=== PATIENT | female | born 1945 | race Two or more races ===

== ENCOUNTER 2022-02-21 10:58 | Outpatient (CLI) | payer MEDICARE, OTHER ==
[2022-02-21 12:57] LABS: BASOPHILS % (AUTO) 0.8 % (0.0-2.0); HEMATOCRIT 46 % (33-45); HEMOGLOBIN 15.1 g/dL (11.5-14.8); LYMPHOCYTES # (AUTO) 2.6 K/uL (0.8-4.8); LYMPHOCYTES % (AUTO) 44.8 % (20.0-44.0); MEAN CORPUSCULAR HGB CONC 33 g/dl (31.0-36.0); MEAN CORPUSCULAR VOLUME 91 fL (82-100); MONOCYTES # (AUTO) 0.4 K/uL (0.1-1.30); MONOCYTES % (AUTO) 6.3 % (2.0-12.0); NEUTROPHILS # (AUTO) 2.8 K/uL (1.8-8.9); NEUTROPHILS % (AUTO) 47.1 % (43.0-81.0); PLATELET COUNT (AUTO) 232 K/uL (150-450); RED BLOOD CELL COUNT(AUTO) 5.03 MIL/uL (4.0-5.2); WHITE BLOOD COUNT (AUTO) 5.9 K/uL (4.3-11.0)
[2022-02-21 12:59] LABS: BILIRUBIN,URINE NEGATIVE (NEGATIVE); COLOR,URINE ORANGE (YELLOW); LEUKOCYTE ESTERASE ,URINE NEGATIVE (NEGATIVE); NITRITE, URINE NEGATIVE (NEGATIVE); PH,URINE 5.5 (5.0-8.0); PROTEIN,URINE NEGATIVE (NEGATIVE); UGLUCOSE NEGATIVE (NEGATIVE); UROBILINOGEN,URINE 0.2 EU/dL (0.2)
[2022-02-21 13:07] LABS: IRON, SERUM 113 ug/dl (50-175); TOTAL IRON BINDING CAPACITY 286 ug/dl (250-450)
[2022-02-21 13:15] LABS: BACTERIA,URINE Few /HPF (None Seen); RBC,URINE 0-2 /HPF (0-2); SQUAMOUS EPITHELIAL CELL,UR Few /HPF (None Seen); WBC,URINE 0-2 /HPF (0-3)
[2022-02-21 13:32] LABS: URINE TOTAL PROTEIN < 6.0 mg/dL (0-11.9)
[2022-02-21 13:39] LABS: ALANINE AMINOTRANSFERASE 28 U/L (12-78); ALBUMIN 3.7 g/dL (3.4-5.0); ALKALINE PHOSPHATASE 70 U/L (46-116); ASPARTATE AMINOTRANSFERASE 23 U/L (15-37); BILIRUBIN,TOTAL 0.5 mg/dL (0.2-1.0); CALCIUM, SERUM 8.9 mg/dL (8.5-10.1); CARBON DIOXIDE 30 mmol/L (21-32); CHLORIDE 104 mmol/L (98-107); CREATININE 0.7 mg/dL (0.6-1.3); GLUCOSE 96 mg/dL (74-106); MAGNESIUM 2.1 mg/dL (1.8-2.4); PHOSPHORUS 3.8 mg/dL (2.5-4.9); POTASSIUM 4.2 mmol/L (3.5-5.1); SODIUM SERUM 136 mmol/L (136-145); TOTAL PROTEIN, SERUM 7.5 g/dL (6.4-8.2); UREA NITROGEN, BLOOD 14 mg/dL (7-18)
[2022-02-21 14:21] LABS: CHOLESTEROL 259 mg/dL (<200); FERRITIN 144 ng/mL (8-388); FREE T4 (FREE THYROXINE) 0.99 ng/dL (0.76-1.46); HDL CHOLESTEROL 62 mg/dL (40-60); LDL 179 mg/dL (0-99); THYROID STIMULATING HORMONE 1.867 uIU/mL (0.358-3.74); TRIGLYCERIDES 127 mg/dL (30-150)
[2022-02-21 14:27] LABS: C-REACTIVE PROTEIN < 0.2 mg/dL (0.0-0.9)
== END 2022-02-21 23:59 | disposition home or self-care (01) ==
LOC: MSC 10:58
PROVIDERS: ATTEND Internal Medicine
DX: M19.90 Unspecified osteoarthritis, unspecified site (principal); E78.5 Hyperlipidemia, unspecified; Z86.79 Personal history of other diseases of the circulatory system; M85.80 Other specified disorders of bone density and structure, unspecified site; Z79.899 Other long term (current) drug therapy
CPT/HCPCS: 80061; 73030; 85025; 87086; 83540; 83735; 83036; 84100; 85652; 81001; 84439; 82746; 84443; 82607; 80053; 82728; 86140; 82306; 86200; 82043; 84155; G0463; 36415

== ENCOUNTER 2022-03-14 09:45 | Outpatient (CLI) | payer MEDICARE, OTHER | END 2022-03-14 23:59 | disposition home or self-care (01) | LOC: MSC 09:45 | PROVIDERS: ATTEND Internal Medicine | DX: M25.511 Pain in right shoulder (principal); D75.1 Secondary polycythemia; R73.03 Prediabetes; E78.5 Hyperlipidemia, unspecified; Z86.79 Personal history of other diseases of the circulatory system ==

== ENCOUNTER 2022-04-20 15:36 | Outpatient (CLI) | payer MEDICARE, OTHER | END 2022-04-20 23:59 | disposition home or self-care (01) | LOC: MRI 15:36 | PROVIDERS: ATTEND Internal Medicine | DX: M19.011 Primary osteoarthritis, right shoulder (principal); M75.101 Unspecified rotator cuff tear or rupture of right shoulder, not specified as traumatic | CPT/HCPCS: 73221-TC ==

== ENCOUNTER 2022-04-25 09:53 | Outpatient (CLI) | payer MEDICARE, OTHER | END 2022-04-25 23:59 | disposition home or self-care (01) | LOC: MSC 09:53 | PROVIDERS: ATTEND Internal Medicine | DX: G89.29 Other chronic pain (principal); M25.511 Pain in right shoulder; M77.8 Other enthesopathies, not elsewhere classified; M25.562 Pain in left knee; D75.1 Secondary polycythemia; R73.03 Prediabetes; E78.5 Hyperlipidemia, unspecified; Z86.79 Personal history of other diseases of the circulatory system | CPT/HCPCS: 73564; G0463 ==

== ENCOUNTER 2022-05-02 08:35 | Outpatient (CLI) | payer MEDICARE, OTHER | END 2022-05-02 23:59 | disposition home or self-care (01) | LOC: MSC 08:35 | PROVIDERS: ATTEND Anesthesiology | DX: M54.16 Radiculopathy, lumbar region (principal); M40.299 Other kyphosis, site unspecified; M62.830 Muscle spasm of back; M25.511 Pain in right shoulder; M75.91 Shoulder lesion, unspecified, right shoulder; M06.9 Rheumatoid arthritis, unspecified ==

== ENCOUNTER 2022-07-04 09:48 | Outpatient (CLI) | payer MEDICARE, OTHER | END 2022-07-04 23:59 | disposition home or self-care (01) | LOC: MSC 09:48 | PROVIDERS: ATTEND Internal Medicine | DX: M25.511 Pain in right shoulder (principal); M17.12 Unilateral primary osteoarthritis, left knee; D75.1 Secondary polycythemia; R73.03 Prediabetes; E78.5 Hyperlipidemia, unspecified; Z86.79 Personal history of other diseases of the circulatory system ==

== ENCOUNTER 2022-07-18 10:46 | Outpatient (CLI) | payer MEDICARE, OTHER | END 2022-07-18 23:59 | disposition home or self-care (01) | LOC: MSC 10:46 | PROVIDERS: ATTEND Internal Medicine | DX: M25.511 Pain in right shoulder (principal); M17.12 Unilateral primary osteoarthritis, left knee; I83.90 Asymptomatic varicose veins of unspecified lower extremity; D75.1 Secondary polycythemia; R73.03 Prediabetes; E78.5 Hyperlipidemia, unspecified; Z86.79 Personal history of other diseases of the circulatory system ==

== ENCOUNTER 2022-09-07 09:16 | Outpatient (CLI) | payer MEDICARE, OTHER ==
[2022-09-07 10:49] LABS: BILIRUBIN,URINE NEGATIVE (NEGATIVE); COLOR,URINE YELLOW (YELLOW); LEUKOCYTE ESTERASE ,URINE 1+ (NEGATIVE); NITRITE, URINE NEGATIVE (NEGATIVE); PROTEIN,URINE NEGATIVE (NEGATIVE); UGLUCOSE NEGATIVE (NEGATIVE); UROBILINOGEN,URINE 0.2 EU/dL (0.2)
[2022-09-07 10:59] LABS: URINE TOTAL PROTEIN 3.4 mg/dL (0-11.9)
[2022-09-07 11:31] LABS: BASOPHILS % (AUTO) 0.9 % (0.0-2.0); EOSINOPHILS % (AUTO) 1.5 % (0.0-6.0); HEMATOCRIT 46 % (33-45); HEMOGLOBIN 15.2 g/dL (11.5-14.8); LYMPHOCYTES # (AUTO) 2.1 K/uL (0.8-4.8); LYMPHOCYTES % (AUTO) 38.1 % (20.0-44.0); MEAN CORPUSCULAR HGB CONC 33 g/dl (31.0-36.0); MEAN CORPUSCULAR VOLUME 91 fL (82-100); MONOCYTES # (AUTO) 0.3 K/uL (0.1-1.30); MONOCYTES % (AUTO) 6.1 % (2.0-12.0); NEUTROPHILS # (AUTO) 2.9 K/uL (1.8-8.9); NEUTROPHILS % (AUTO) 53.4 % (43.0-81.0); PLATELET COUNT (AUTO) 200 K/uL (150-450); RED BLOOD CELL COUNT(AUTO) 5.03 MIL/uL (4.0-5.2); WHITE BLOOD COUNT (AUTO) 5.5 K/uL (4.3-11.0)
[2022-09-07 11:44] LABS: BACTERIA,URINE Few /HPF (None Seen); RBC,URINE 0-3 /HPF (0-2); SQUAMOUS EPITHELIAL CELL,UR Few /HPF (None Seen)
[2022-09-07 12:34] LABS: CHOLESTEROL 172 mg/dL (<200); HDL CHOLESTEROL 55 mg/dL (40-60); LDL 100 mg/dL (0-99); THYROID STIMULATING HORMONE 2.146 uIU/mL (0.358-3.74); TRIGLYCERIDES 165 mg/dL (30-150)
[2022-09-07 12:47] LABS: ALANINE AMINOTRANSFERASE 33 U/L (12-78); ALBUMIN 3.6 g/dL (3.4-5.0); ALKALINE PHOSPHATASE 62 U/L (46-116); ASPARTATE AMINOTRANSFERASE 20 U/L (15-37); BILIRUBIN,TOTAL 0.7 mg/dL (0.2-1.0); CALCIUM, SERUM 9.6 mg/dL (8.5-10.1); CARBON DIOXIDE 28 mmol/L (21-32); CHLORIDE 105 mmol/L (98-107); CREATININE 0.8 mg/dL (0.6-1.3); GLUCOSE 145 mg/dL (74-106); MAGNESIUM 1.9 mg/dL (1.8-2.4); PHOSPHORUS 3.1 mg/dL (2.5-4.9); POTASSIUM 4.5 mmol/L (3.5-5.1); SODIUM SERUM 140 mmol/L (136-145); TOTAL PROTEIN, SERUM 7.2 g/dL (6.4-8.2); UREA NITROGEN, BLOOD 15 mg/dL (7-18)
[2022-09-07 13:08] LABS: C-REACTIVE PROTEIN < 0.2 mg/dL (0.0-0.9)
== END 2022-09-07 23:59 | disposition home or self-care (01) ==
LOC: MSC 09:16
PROVIDERS: ATTEND Internal Medicine
DX: M17.12 Unilateral primary osteoarthritis, left knee (principal); M25.511 Pain in right shoulder; I83.90 Asymptomatic varicose veins of unspecified lower extremity; D75.1 Secondary polycythemia; R73.03 Prediabetes; E78.5 Hyperlipidemia, unspecified; Z86.79 Personal history of other diseases of the circulatory system; Z79.899 Other long term (current) drug therapy
CPT/HCPCS: 80061; 85025; 87086; 83735; 83036; 84100; 85652; 81001; 36415; 84439; 82746; 84443; 82607; 80053; 86140; 84156; 82043; 82570; G0463

== ENCOUNTER 2022-09-13 13:25 | Outpatient (CLI) | payer MEDICARE, OTHER | END 2022-09-13 23:59 | disposition home or self-care (01) | LOC: MRI 13:25 | PROVIDERS: ATTEND Internal Medicine | DX: M22.42 Chondromalacia patellae, left knee (principal); M25.562 Pain in left knee | CPT/HCPCS: 73721-TC ==

== ENCOUNTER 2022-11-28 09:30 | Outpatient (CLI) | payer MEDICARE, OTHER | END 2022-11-28 23:59 | disposition home or self-care (01) | LOC: MSC 09:30 | PROVIDERS: ATTEND Internal Medicine | DX: M17.12 Unilateral primary osteoarthritis, left knee (principal); M25.511 Pain in right shoulder; D75.1 Secondary polycythemia; R73.03 Prediabetes; E78.5 Hyperlipidemia, unspecified; Z86.79 Personal history of other diseases of the circulatory system ==

== ENCOUNTER 2023-11-13 09:11 | Outpatient (CLI) | payer MEDICARE, OTHER | END 2023-11-13 23:59 | disposition home or self-care (01) | LOC: MSC 09:11 | PROVIDERS: ATTEND Internal Medicine | DX: D75.1 Secondary polycythemia (principal); M17.0 Bilateral primary osteoarthritis of knee; R05.9 Cough, unspecified; M75.92 Shoulder lesion, unspecified, left shoulder; H81.10 Benign paroxysmal vertigo, unspecified ear; K21.9 Gastro-esophageal reflux disease without esophagitis; R73.03 Prediabetes; I10 Essential (primary) hypertension; M19.91 Primary osteoarthritis, unspecified site; E78.5 Hyperlipidemia, unspecified; M25.511 Pain in right shoulder; Z86.79 Personal history of other diseases of the circulatory system ==

== ENCOUNTER 2025-01-18 12:09 | Emergency (ER) | payer MEDICARE, OTHER ==
[~2025-01-18] VITALS: Ht 152.4 cm; Wt 60.8 kg
[2025-01-18] MEDS: LORAZEPAM INJ 2 MG/ML VIAL IV ONE (12:40)
[2025-01-18] MEDS ORDERED: MECLIZINE HCL 25 MG TABLET ONE (12:43)
[2025-01-18] MEDS ORDERED: LORAZEPAM INJ 2 MG/ML VIAL ONE (12:44)
[2025-01-18] MEDS: IV NS 0.9% 1,000 ML BAG IV ONE (12:45)
[2025-01-18] MEDS: MECLIZINE HCL 25 MG TABLET PO ONE (12:50)
[2025-01-18] MEDS ORDERED: MECL-159 PO (13:36)
[2025-01-18 14:42] VITALS: BP 120/60; O2SAT 96
== END 2025-01-18 14:39 | disposition home or self-care (01) ==
LOC: ER 12:16
DX: H81.399 Other peripheral vertigo, unspecified ear (principal); I11.9 Hypertensive heart disease without heart failure; E78.00 Pure hypercholesterolemia, unspecified
CPT/HCPCS: 99285; 96374; 70450; 96361; 93005; J8597; J2060; J7030

== ENCOUNTER 2025-02-17 11:18 | Outpatient (CLI) | payer MEDICARE, OTHER ==
[~2025-02-17 11:18] MED LIST: MECL-159 PO
== END 2025-02-17 23:59 | disposition home or self-care (01) ==
LOC: MSC 11:18
PROVIDERS: ATTEND Internal Medicine
DX: H81.10 Benign paroxysmal vertigo, unspecified ear (principal); M81.0 Age-related osteoporosis without current pathological fracture; E78.5 Hyperlipidemia, unspecified; F41.8 Other specified anxiety disorders; M17.12 Unilateral primary osteoarthritis, left knee; L98.8 Other specified disorders of the skin and subcutaneous tissue; M75.92 Shoulder lesion, unspecified, left shoulder; I10 Essential (primary) hypertension; R73.03 Prediabetes; D75.1 Secondary polycythemia; K21.9 Gastro-esophageal reflux disease without esophagitis